=== PATIENT | male | born 1960 | race Two or more races ===

== ENCOUNTER 2017-09-16 06:55 | Emergency (ER) | payer BC ==
[2017-09-16] MEDS ORDERED: Sodium Chloride 0.9% 2.5 ML Syringe FLUSH PRN (07:12)
[2017-09-16] MEDS ORDERED: Sodium Chloride 0.9% 10 ML Syringe FLUSH PRN (07:12)
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
[2017-09-16 08:18] LABS: CHLORIDE,CL 103 mmol/L (98-107); SODIUM,NA 137 mmol/L (136-148)
[2017-09-16] MEDS ORDERED: Piperacillin/Tazobactam 3.375 GM in Sodium Chloride 0.9% 50 ML IV ONE (10:11)
[2017-09-16] MEDS ORDERED: Sodium Chloride 0.9% 1,000 ML IV SCH (10:30)
--- NOTE | 2017-09-16 13:20 | CT ---
EXAM DATE: 09/16/17 PATIENT'S AGE: 56 Patient: JOSELUIS GARCIA Facility: [place], [place] Site Patient ID: [id number]. Site : [id number] Study: CT ST Neck [id number]/24/2018 8:22:52 AM Ordering Physician: Doctor Yuen Final Report: INDICATION: Neck mass. TECHNIQUE: CT scan soft tissue neck. IV contrast. FINDINGS: A very large left neck mass. The mass involves the left neck and left supraclavicular region. A enhancing solid component is present measuring 5.0 x 3.6 x 4.0 cm. A more exophytic partially solid or cystic/necrotic portion of the mass is present. Measuring 10.0 x 5.9 x 9.5 cm. Vessels are noted within the mass of. Additional mass or enlargement of lymph nodes in the left parapharyngeal space measuring up to 1.7 cm. The mass abuts the inferior aspect of the parotid gland does not arise from the parotid gland, a distinct fat plane is present. This also does not appear to arise from the submandibular gland. The left thyroid is heterogeneous, however intact fat plane is suggested between the medial margin of the mass and the left thyroid. Tracheal deviation is present from left to right. No tracheal narrowing. No significant lesion at the skullbase. Additional component of the mass extends superiorly to the left lung apex from the supraclavicular region with enhancing component measuring 3.6 x 2.0 cm. Multiple pulmonary nodules. Mucous retention cysts are present in the maxillary sinuses. Cervical spine disc degeneration no suspicious osseous lesions. IMPRESSION: 1. Very large heterogeneous left neck mass with areas of possible cystic change or necrosis and solid enhancing components. Involvement of the left parapharyngeal space, left supraclavicular region and extension toward the left lung apex. The site of origin of the mass is difficult to determine radiographically. 2. Multiple pulmonary nodules. 3. Findings would be suspicious for malignant neoplasm and possible metastatic involvement. 4. Suggest surgical consultation, tissue sampling in further staging imaging evaluation. Please note that all CT scans at this facility use dose modulation, iterative reconstruction, and/or weight-based dosing when appropriate to reduce radiation dose to as low as reasonably achievable. Dictated by José Miguel Fuller MD @ Sep 16 2017 9:17AM (Electronic Signature) Report Signed by Proxy. MTDD
[2017-09-16] MEDS ORDERED: Iopamidol 755 MG/ML 500 ML Multipack Bottle IVPUSH STA (13:47)
== END 2017-09-16 11:16 ==
LOC: MW.ED 06:55
DX: R22.1 Localized swelling, mass and lump, neck (principal)
CPT/HCPCS: 36415; 70491; 80053; 83605; 85025; 85610; 96365; 99284; J2543; J7040; J7050; Q9967

== ENCOUNTER 2018-08-31 11:53 | Emergency (ER) | payer SELFPAY ==
--- NOTE | 2018-08-31 12:26 | EDM.PDOC ---
ED HPI GENERAL MEDICAL PROBLEM - General Chief Complaint: Neurological Problem Stated Complaint: LEG WEAKNESS Time Seen by Provider: 08/31/18 11:54 Source of Information: Reports: Patient History Limitations: Reports: No Limitations - History of Present Illness INITIAL COMMENTS - FREE TEXT/NARRATIVE: History of present illness: [][facility] [place] his left leg gave out on him and he fell to the ground. Patient also complains of bilateral leg numbness throughout both legs. Patient was seen by chiropractor yesterday and was told that he has some serious problems in his low back. He denies any Urinary or fecal incontinence but is constipated. Patient ambulated into the ED. Review of systems: As per history of present illness and below otherwise all systems reviewed and negative. Past medical history: As per history of present illness and as reviewed below otherwise noncontributory. Surgical history: As per history of present illness and as reviewed below otherwise noncontributory. Social history: No reported history of drug or alcohol abuse. Family history: As per history of present illness and as reviewed below otherwise noncontributory. Physical exam: General: Well developed, well nourished in NAD HEENT: Atraumatic, normocephalic, pupils reactive, negative for conjunctival pallor or scleral icterus, mucous membranes moist, throat clear, neck supple, nontender, trachea midline. Lungs: Clear to auscultation, breath sounds equal bilaterally, chest nontender. Heart: S1S2, regular, negative for clicks, rubs, or JVD. Abdomen: NABS, Soft, nondistended, nontender. Negative for masses or hepatosplenomegaly. Negative for costovertebral tenderness. Pelvis: Stable nontender. Genitourinary: Deferred. Rectal: Deferred. Extremities: Atraumatic, negative for cords or calf pain. Neurovascular unremarkable. Neuro: Awake, alert, oriented. Cranial nerves II through XII unremarkable. Cerebellum unremarkable. Motor and sensory unremarkable throughout. Exam nonfocal. Leg raise negative, reflexes 2+ bilateral patellar and Achilles, motor 5 over 5 bilateral lower extremities and no cerebellar signs Skin:warm and dry Diagnostics: None Therapeutics: None ED Course: Stable Impression: Medical screening exam Prescriptions: None Plan: Follow-up Primary care Definitive disposition and diagnosis as appropriate pending reevaluation and review of above. - Related Data Allergies Allergy/AdvReac Type Severity Reaction Status Date / Time No Known Allergies Allergy Verified 08/31/18 12:14 Home Meds: Home Meds Levothyroxine 224 mcg PO DAILY 08/31/18 [History] Past Medical History HEENT History: Reports: None Cardiovascular History: Reports: None Respiratory History: Reports: None Gastrointestinal History: Reports: None Genitourinary History: Reports: None Musculoskeletal History: Reports: None Neurological History: Reports: None Psychiatric History: Reports: None Endocrine/Metabolic History: Reports: Hypothyroidism Hematologic History: Reports: None Oncologic (Cancer) History: Reports: Thyroid Dermatologic History: Reports: None - Infectious Disease History Infectious Disease History: Reports: Chicken Pox - Past Surgical History Endocrine Surgical History: Reports: Thyroidectomy Social & Family History - Family History Family Medical History: Noncontributory - Tobacco Use Smoking Status *Q: Former Smoker Used Tobacco, but Quit: Yes Month/Year Tobacco Last Used: unknown - Recreational Drug Use Recreational Drug Use: No ED ROS GENERAL - Review of Systems Review Of Systems: ROS reveals no pertinent complaints other than HPI. ED EXAM, NEURO - Physical Exam Exam: See Below (See history of present illness) Course - Vital Signs Last Recorded V/S: Last Vital Signs Temp 96.8 F 08/31/18 12:07 Pulse 66 08/31/18 12:07 Resp 18 08/31/18 12:07 BP 134/68 08/31/18 12:07 Pulse Ox 92 L 08/31/18 12:07 Departure - Departure Time of Disposition: 12:25 Disposition: Home, Self-Care 01 Condition: Good Clinical Impression: Bilateral leg numbness, Left leg weakness - Discharge Information *PRESCRIPTION DRUG MONITORING PROGRAM REVIEWED*: No *COPY OF PRESCRIPTION DRUG MONITORING REPORT IN PATIENT SVETLANA: No Referrals: PCP,Unknown [Primary Care Provider] - Additional Instructions: The following information is given to patients seen in the emergency department who are being discharged to home. This information is to outline your options for follow-up care. We provide all patients seen in our emergency department with a follow-up referral. The need for follow-up, as well as the timing and circumstances, are variable depending upon the specifics of your emergency department visit. If you don't have a primary care physician on staff, we will provide you with a referral. We always advise you to contact your personal physician following an emergency department visit to inform them of the circumstance of the visit and for follow-up with them and/or the need for any referrals to a consulting specialist. The emergency department will also refer you to a specialist when appropriate. This referral assures that you have the opportunity for follow-up care with a specialist. All of these measure are taken in an effort to provide you with optimal care, which includes your follow-up. Under all circumstances we always encourage you to contact your private physician who remains a resource for coordinating your care. When calling for follow-up care, please make the office aware that this follow-up is from your recent emergency room visit. If for any reason you are refused follow-up, please contact the [facility] Emergency Department at and asked to speak to the emergency department charge nurse. [facility] [address] [place] [id number]
== END 2018-08-31 12:30 | disposition home or self-care (01) ==
LOC: MW.ED 11:53
DX: M62.81 Muscle weakness (generalized) (principal); R20.0 Anesthesia of skin; E03.9 Hypothyroidism, unspecified; Z87.891 Personal history of nicotine dependence
CPT/HCPCS: 99282